=== PATIENT | female | born 1945 | race Caucasian/White ===

== ENCOUNTER → 2021-05-18 | Outpatient (CLI) | payer MEDICARE, OTHER ==
[~2021-05-18] MED LIST: LASIX 20MG TABL20 MG PO; LOPRESSOR 225 MG/TAB PO; NORCO 325 MG-51 TAB PO; NORCO 325 MG-7.1 TAB PO
== END ==
LOC: MC.RAD 12:44
DX: C50.411 Malignant neoplasm of upper-outer quadrant of right female breast (principal); C34.91 Malignant neoplasm of unspecified part of right bronchus or lung; Z98.82 Breast implant status
CPT/HCPCS: C1769

== ENCOUNTER → 2021-05-25 | Outpatient (CLI) | payer MEDICARE, OTHER | LOC: COL.RAD 12:40 → MC.RAD 12:40 | DX: I89.8 Other specified noninfective disorders of lymphatic vessels and lymph nodes (principal); C50.411 Malignant neoplasm of upper-outer quadrant of right female breast | CPT/HCPCS: A9541 ==

== ENCOUNTER 2021-05-26 06:20 | Day surgery (SDC) | payer MEDICARE, OTHER ==
[~2021-05-26] VITALS: Ht 175.3 cm; Wt 96.0 kg
[~2021-05-26 06:20] MED LIST changes: -LOPRESSOR 225 MG/TAB PO; -NORCO 325 MG-51 TAB PO
[2021-05-26 07:46] VITALS: BP 167/86; PULSE 99; TEMP 98.1
[2021-05-26] MEDS ORDERED: NORCO 325 MG-51 TAB PO (12:21)
[2021-05-26 12:35] VITALS: BP 137/77; PULSE 82; TEMP 97.5
[2021-05-26 12:50] VITALS: BP 142/82; PULSE 84
[2021-05-26 13:05] VITALS: BP 147/74; PULSE 87
[2021-05-26 13:25] VITALS: BP 157/83; PULSE 87
[2021-05-26 14:00] VITALS: BP 157/65; PULSE 96
== END 2021-05-26 14:15 | disposition home or self-care (01) ==
LOC: SDCO 06:20
DX: C50.411 Malignant neoplasm of upper-outer quadrant of right female breast (principal); I10 Essential (primary) hypertension; Z20.822 Contact with and (suspected) exposure to COVID-19; Z80.0 Family history of malignant neoplasm of digestive organs; Z80.1 Family history of malignant neoplasm of trachea, bronchus and lung; Z82.3 Family history of stroke
CPT/HCPCS: A4648; J0690; J1100; J2250; J2405; J2704; J2795; J3010; J7120; Q9968

== ENCOUNTER 2021-06-10 11:28 | Day surgery (SDC) | payer MEDICARE, OTHER ==
[~2021-06-10] VITALS: Ht 172.7 cm; Wt 94.9 kg
[~2021-06-10 11:28] MED LIST changes: +NORCO 325 MG-51 TAB PO
[2021-06-10] MEDS ORDERED: LOPRESSOR 225 MG/TAB PO (12:09)
[2021-06-10 12:26] VITALS: BP 154/67; PULSE 73; TEMP 98.3
[2021-06-10 14:25] VITALS: BP 130/60; PULSE 68; TEMP 97.3
--- NOTE | 2021-06-10 14:25 | NUR ---
Pt returns to [facility] from the OR, report received from CHARANJIT Escobar. Pt drowsy but easily arousable, denies pain. VSS. Going to rest for a little bit, call light in reach. [facility] at bedside.
[2021-06-10 14:40] VITALS: BP 138/63; PULSE 65
--- NOTE | 2021-06-10 14:40 | NUR ---
Pt awakens easily, denies pain, provided water and tolerates well. Call light in reach.
[2021-06-10 14:55] VITALS: BP 158/65; PULSE 58
--- NOTE | 2021-06-10 14:55 | NUR ---
Pt awake and alert, mild discomfort to right breast, Tylenol given per orders. Pt tolerated a muffin well, no nausea. Pt assisted up to the bathroom and voids without difficulty.
[2021-06-10 15:10] VITALS: PULSE 62
--- NOTE | 2021-06-10 15:20 | NUR ---
IV discontinued to left ac and discharge instructions provided, pt gets dressed and taken out via wheelchair at 1535 and left in care of [facility].
== END 2021-06-10 15:35 | disposition home or self-care (01) ==
LOC: SDCO 11:28
DX: C50.411 Malignant neoplasm of upper-outer quadrant of right female breast (principal); I10 Essential (primary) hypertension; Z90.710 Acquired absence of both cervix and uterus; Z79.899 Other long term (current) drug therapy; Z20.822 Contact with and (suspected) exposure to COVID-19; Z80.0 Family history of malignant neoplasm of digestive organs; Z80.1 Family history of malignant neoplasm of trachea, bronchus and lung; Z82.3 Family history of stroke
CPT/HCPCS: A4648; J0690; J1100; J2250; J2704; J2795; J3010; J7120